=== PATIENT | female | born 1960 | race Caucasian/White ===

== ENCOUNTER 2021-01-21 08:23 | Emergency (ER) | payer OTHER ==
[2021-01-21] MEDS ORDERED: Ibuprofen 200 MG TAB ONE (09:48)
[2021-01-21] MEDS ORDERED: Triple Antibiotic Oint 1 GM Packet ONE (09:53)
== END 2021-01-21 09:53 | disposition home or self-care (01) ==
LOC: CSHERS 08:23
DX: S09.90XA Unspecified injury of head, initial encounter (principal); S63.502A Unspecified sprain of left wrist, initial encounter; S93.402A Sprain of unspecified ligament of left ankle, initial encounter; E11.9 Type 2 diabetes mellitus without complications; E78.00 Pure hypercholesterolemia, unspecified; I10 Essential (primary) hypertension; Z79.84 Long term (current) use of oral hypoglycemic drugs; Z79.899 Other long term (current) drug therapy; W01.0XXA Fall on same level from slipping, tripping and stumbling without subsequent striking against object, initial encounter

== ENCOUNTER 2022-05-05 07:37 | Emergency (ER) | payer OTHER ==
[2022-05-05] MEDS ORDERED: Ketorolac Tromethamine 30 MG/ML VIAL ONE (08:22)
== END 2022-05-05 08:40 | disposition home or self-care (01) ==
LOC: CSHERS 07:37
DX: J02.9 Acute pharyngitis, unspecified (principal); J04.0 Acute laryngitis; E11.9 Type 2 diabetes mellitus without complications; E78.5 Hyperlipidemia, unspecified; I10 Essential (primary) hypertension
CPT/HCPCS: 96372; 99283; J1885